=== PATIENT | male | born 1955 | race Caucasian/White ===

== ENCOUNTER 2021-12-29 05:43 | Observation (INO) ==
[~2021-12-29 05:43] MED LIST: Naloxone 0.4 mg VIAL 0.4 mg/ml 1 ml VIAL IV PRN; Ondansetron 4 mg VIAL 2 MG/ML 2 ml VIAL IV PRN; fentaNYL 100 mcg/2 ml 50 MCG/ML VIAL IV PRN
[2021-12-29] MEDS ORDERED: Buffered Lidocaine 1% SYRIN 1 ml INTRADERM ONE (06:00)
[2021-12-29] MEDS ORDERED: Lactated Ringers 1000 ml BAG 1,000 ML IV SCH (06:00)
[2021-12-29] MEDS ORDERED: ceFAZolin 2 GM in NS PREMIX 2 GM/100 ML BAG IVPB ONE (06:05)
[2021-12-29] MEDS ORDERED: Propofol 10 MG/ML 20 ML BTL ONE ×2 (06:55→08:52)
[2021-12-29] MEDS ORDERED: Ketamine HCL 50 mg/ml 10 ml VIAL (500 MG) ONE (06:58)
[2021-12-29] MEDS ORDERED: Midazolam 2 mg/2 ml VIAL 1 mg/ml 2 ml VIAL (2 mg) ONE (06:58)
[2021-12-29] MEDS ORDERED: Bupivacaine 0.5% PF 10 ML SDV VIAL INJ ONE (07:26)
[2021-12-29] MEDS ORDERED: fentaNYL 100 mcg/2 ml 50 MCG/ML VIAL ONE (07:31)
[2021-12-29] MEDS ORDERED: EPHEDrine (Pressors) 50 MG/ML VIAL ONE (08:08)
[2021-12-29] MEDS ORDERED: Phenylephrine IV 10 MG/ML 1 ml VIAL ONE (08:24)
[2021-12-29] MEDS ORDERED: Acetaminophen IV 1 GM/100ML 100 ML IV ONE (08:33)
[2021-12-29] MEDS ORDERED: Ondansetron 4 mg VIAL 2 MG/ML 2 ml VIAL ONE (08:34)
[2021-12-29] MEDS ORDERED: Magnesium Hydroxide LIQ 30 ML UDC PO PRN (10:12)
[2021-12-29] MEDS ORDERED: Ondansetron ODT 4 mg TAB 4 MG TAB PO PRN (10:12)
[2021-12-29] MEDS ORDERED: Morphine 2 MG/ML SYRINGE IV PRN (10:12)
[2021-12-29] MEDS ORDERED: Lactulose 30 ml UDC PO PRN (10:12)
[2021-12-29] MEDS ORDERED: Ondansetron 4 mg VIAL 2 MG/ML 2 ml VIAL IV PRN (10:12)
[2021-12-29] MEDS: Lactated Ringers 1000 ml BAG 1,000 ML IV SCH ×2 (11:20→21:52)
[2021-12-29] MEDS: ceFAZolin 1 GM ADVAN 1 GM in NS 0.9% 50 ML 50 ML IVPB SCH ×2 (16:50→23:27)
[2021-12-29] MEDS: Magnesium Hydroxide LIQ 30 ML UDC PO SCH (19:58)
[2021-12-30 06:36] LABS: Hematocrit 30 % (42-52); Hemoglobin 10.2 g/dL (14.0-18.0); Mean Platelet Volume 9.3 fL (7.4-10.4); Platelet Count 102 10^3/uL (150-450)
[2021-12-30 07:01] LABS: Calcium 7.8 mg/dL (8.6-10.3); Potassium 4.3 mmol/L (3.5-5.0); eGFR CKD-EPI 95.9 (>60)
[2021-12-30] MEDS: ceFAZolin 1 GM ADVAN 1 GM in NS 0.9% 50 ML 50 ML IVPB SCH (07:34)
[2021-12-30] MEDS ORDERED: Vitamin THERAPEUTIC TAB PO SCH (09:00)
[2021-12-30] MEDS: Magnesium Hydroxide LIQ 30 ML UDC PO SCH (09:25)
[2021-12-30 11:48] VITALS: BP 104/66
== END 2021-12-30 13:11 | disposition home or self-care (01) ==
LOC: OR 05:43 → SSU 05:43
PROVIDERS: ADMIT Orthopaedic Surgery Adult Reconstructive Orthopaedic Surgery; ATTEND Orthopaedic Surgery Adult Reconstructive Orthopaedic Surgery